=== PATIENT | female | born 1970 | race Caucasian/White ===

== ENCOUNTER 2016-11-08 07:12 | Observation (INO) | payer MEDICAID ==
[~2016-11-08] VITALS: Ht 167.6 cm; Wt 62.2 kg
[2016-11-08] MEDS ORDERED: SODIUM CHLORIDE 0.9% 1,000 ML ONE ×2 (07:47→08:49)
[2016-11-08] MEDS ORDERED: FLEET ENEMA 132 ML BTL RECTAL PRN (10:10)
[2016-11-08] MEDS ORDERED: SALINE FLUSH 10 ML FLUSH PRN (10:10)
[2016-11-08] MEDS ORDERED: ACETAMINOPHEN 325 MG TAB PO PRN (10:10)
[2016-11-08] MEDS ORDERED: BISACODYL 10 MG SUPP RECTAL PRN (10:10)
[2016-11-08] MEDS ORDERED: BISACODYL EC 5 MG TAB PO PRN (10:10)
[2016-11-08] MEDS ORDERED: MAG HYDROX 30 ML UDC PO PRN (10:10)
[2016-11-08] MEDS ORDERED: ONDANSETRON 4 MG VIAL IV PRN (10:10)
[2016-11-08] MEDS ORDERED: ALU/MAG/SIM 30 ML UDC PO PRN (10:10)
[2016-11-08 11:40] VITALS: BP_SYST 110; BP_SYST 120; RESP 22; TEMP 97.5; Ht 167.6 cm; Wt 62.2 kg
[2016-11-08] MEDS ORDERED: DIAZEPAM 5 MG TAB PO PRN (12:45)
[2016-11-08] MEDS: [UNRECOGNIZED DRUG - REMARK] XX SCH (13:09)
[2016-11-08] MEDS: SODIUM CHLORIDE 0.9% 1,000 ML IV SCH ×2 (14:05→20:53)
[2016-11-08] MEDS: NICOTINE 21 MG/24 HR TRANSDERM SCH (14:20)
[2016-11-08 14:54] VITALS: RESP 18
[2016-11-08] MEDS: ASPIRIN 81 MG CHEW TAB PO SCH (15:18)
[2016-11-08] MEDS: ENOXAPARIN 40 MG/0.4 ML SYR SUBQ SCH (15:19)
[2016-11-08 15:21] VITALS: BP_SYST 135; RESP 22; TEMP 97.9
[2016-11-08 19:19] VITALS: BP_SYST 124
[2016-11-08 19:20] VITALS: RESP 20; TEMP 98.3
[2016-11-08] MEDS: SALINE FLUSH 10 ML FLUSH SCH (20:00)
[2016-11-08] MEDS: FAMOTIDINE 20 MG TAB PO SCH (20:50)
[2016-11-09] VITALS (7 sets, daily range): BP systolic 132–152; RESP 16–20; TEMP 97.7–99
[2016-11-09] MEDS: SODIUM CHLORIDE 0.9% 1,000 ML IV SCH (05:43)
[2016-11-09] MEDS ORDERED: SODIUM CHLORIDE 0.9% FLUSH BAG 500 ML IV SCH (06:00)
[2016-11-09] MEDS: SALINE FLUSH 10 ML FLUSH SCH (07:28)
[2016-11-09] MEDS: [UNRECOGNIZED DRUG - REMARK] XX SCH (07:30)
[2016-11-09] MEDS: ASPIRIN 81 MG CHEW TAB PO SCH (08:22)
[2016-11-09] MEDS: NICOTINE 21 MG/24 HR TRANSDERM SCH (08:22)
[2016-11-09] MEDS: FAMOTIDINE 20 MG TAB PO SCH (08:22)
[2016-11-09] MEDS: ENOXAPARIN 40 MG/0.4 ML SYR SUBQ SCH (08:23)
== END 2016-11-09 09:20 | disposition home or self-care (01) ==
LOC: ENRESERVTM → ENRESERVDT → ER 07:12 → EMR 10:07 → ENPENDDIS 10:07 → 3NT 11:24
PROVIDERS: ADMIT Family Medicine; ATTEND Family Medicine
DX: I45.9 Conduction disorder, unspecified (principal); I95.2 Hypotension due to drugs; T46.1X5A Adverse effect of calcium-channel blockers, initial encounter; I34.1 Nonrheumatic mitral (valve) prolapse; I47.1 Supraventricular tachycardia; F10.10 Alcohol abuse, uncomplicated; F41.9 Anxiety disorder, unspecified; F32.9 Major depressive disorder, single episode, unspecified; Z91.5 Personal history of self-harm; I10 Essential (primary) hypertension; F17.200 Nicotine dependence, unspecified, uncomplicated; D72.828 Other elevated white blood cell count; N63 Unspecified lump in breast; Z79.82 Long term (current) use of aspirin
CPT/HCPCS: 36415; 80048; 80053; 80307; 80320; 80329; 81001; 83690; 83735; 84484; 84703; 85025; 87088; 93005; 94799; 96360; 99217; 99223